=== PATIENT | female | born 1965 | race Caucasian/White ===

== ENCOUNTER 2021-10-03 06:00 | Outpatient (RCR) | payer OTHER, SELFPAY | END 2021-10-18 23:59 | disposition home or self-care (01) | LOC: APT 06:00 | PROVIDERS: Referring Provider Orthopaedic Surgery; Visit Provider Orthopaedic Surgery | DX: M75.102 Unspecified rotator cuff tear or rupture of left shoulder, not specified as traumatic (principal); M77.12 Lateral epicondylitis, left elbow | CPT/HCPCS: 97110; 97140; 97163 ==

== ENCOUNTER 2021-10-19 06:00 | Outpatient (RCR) | payer OTHER, SELFPAY | END 2021-11-18 23:59 | disposition home or self-care (01) | LOC: APT 06:00 | PROVIDERS: Referring Provider Orthopaedic Surgery; Visit Provider Orthopaedic Surgery | DX: M77.12 Lateral epicondylitis, left elbow (principal); S46.022D Laceration of muscle(s) and tendon(s) of the rotator cuff of left shoulder, subsequent encounter; X58.XXXD Exposure to other specified factors, subsequent encounter | CPT/HCPCS: 97110; 97140 ==

== ENCOUNTER 2021-11-19 06:00 | Outpatient (RCR) | payer OTHER, SELFPAY | END 2021-12-18 23:59 | disposition home or self-care (01) | LOC: APT 06:00 | PROVIDERS: Referring Provider Orthopaedic Surgery; Visit Provider Orthopaedic Surgery | DX: Z47.89 Encounter for other orthopedic aftercare (principal); Z98.890 Other specified postprocedural states; M77.12 Lateral epicondylitis, left elbow | CPT/HCPCS: 97110; 97140 ==

== ENCOUNTER 2021-12-19 06:00 | Outpatient (RCR) | payer OTHER, SELFPAY | END 2022-01-18 23:59 | disposition home or self-care (01) | LOC: APT 06:00 | PROVIDERS: Referring Provider Orthopaedic Surgery; Visit Provider Orthopaedic Surgery | DX: Z47.89 Encounter for other orthopedic aftercare (principal); Z98.890 Other specified postprocedural states; M77.12 Lateral epicondylitis, left elbow | CPT/HCPCS: 97110; 97140 ==

== ENCOUNTER 2022-01-19 06:00 | Outpatient (RCR) | payer OTHER, SELFPAY | END 2022-02-18 23:59 | disposition home or self-care (01) | LOC: APT 06:00 | PROVIDERS: Referring Provider Orthopaedic Surgery; Visit Provider Orthopaedic Surgery | DX: M77.12 Lateral epicondylitis, left elbow (principal) | CPT/HCPCS: 97164 ==

== ENCOUNTER 2024-11-23 17:35 | Emergency (ER) | payer OTHER, SELFPAY ==
[2024-11-23 17:43] VITALS: BP 162/84; PULSE 87; RESP 16; TEMP 36.6; O2SAT 98; BMI 23.8
--- NOTE | 2024-11-23 18:05 | W.ED.FALL ---
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 The ladder on the side of the concrete truck patient was holding onto, slipped with muddy boots, and thinks that she rolled. Her hat flew off. She complains of pain in bilateral wrist, and is unsure of LOC. She states she just feels sore all over. Coworker examined back that noted contusions. Associated symptoms-after fall: Reports neck pain; Denies abdominal pain, chest pain or headache(s) Related Data Previous Rx's ?Medication ?Instructions ?Recorded azithromycin 250 mg tablet See Rx Instructions PO .COMPLEX #6 10/11/24 tabs cyclobenzaprine 10 mg tablet 10 mg PO Q8H PRN muscle spasm #20 11/23/24 tabs Allergies Allergy/AdvReac Type Severity Reaction Status Date / Time No Known Allergies Allergy Verified 10/11/24 11:41 Review of Systems General: Reports: 10 or more systems reviewed and unremarkable except in HPI and below Const: Denies: fever(s) or chills ENMT: Denies: throat pain Card: Denies: chest pain or palpitations Resp: Denies: dyspnea, productive cough or wheezing GI: Denies: abdominal pain, nausea or vomiting : Denies: flank pain Musc: Reports: neck pain, back pain and joint pain Skin/Breast: Reports: erythema and skin tenderness; Denies: rash or pruritus Neuro: Denies: headache(s) Psych: Denies: anxiety or depression PFSH ED PFSH: Medical History Allergic rhinitis Social History Smoking and tobacco/nicotine status: former use of tobacco/nicotine Alcohol intake: never Substance/Drug Use: never Physical Exam Const: COMMON NORMALS: no acute distress, average body habitus, patient oriented x3 and no limitations GENERAL APPEARANCE: cooperative HENMT: COMMON NORMALS: normocephalic, atraumatic, hearing grossly normal bilaterally, external ears normal, TM's normal bilaterally and Normal external nose present HEAD & SCALP: normocephalic and atraumatic NOSE: Normal external nose present and Normal nares present GENERAL EAR: hearing not grossly impaired EXTERNAL EAR: Yes external ears normal TYMPANIC MEMBRANE: TM's normal bilaterally THROAT: posterior oropharynx normal, tonsils normal and uvula midline Eye: COMMON NORMALS: Equal, round and reactive pupils present and EOMs intact bilaterally SCLERA: sclerae normal PUPIL: Yes Equal, round and reactive pupils present Neck/C-Spine: COMMON NORMALS: full ROM and no lymphadenopathy GENERAL: Yes normal visual inspection CERVICAL SPINE: Yes cervical ROM normal OTHER: no pain on c-spine palpitation Lymph: LYMPHATIC: no lymphadenopathy noted Chest: Breast/axilla inspection: Yes no chest deformity, asymmetry, normal contours, no nodules, masses, tenderness and Yes normal inspection of the axillae Resp: COMMON NORMALS: normal respiratory effort, No retractions, No use of accessory muscles, clear to auscultation bilaterally and percussion normal EFFORT & INSPECTION: Yes able to speak in complete sentences and Yes symmetric chest movement AUSCULTATION: clear to auscultation bilaterally PERCUSSION: percussion normal Cardio: COMMON NORMALS: S1 normal heart sound present, S2 normal heart sound present and Peripheral pulses 2+ throughout HEART SOUNDS: S1 normal heart sound present and S2 normal heart sound present PERIPHERAL PULSES: Peripheral pulses 2+ throughout GI: INSPECTION: Yes normal to inspection AUSCULTATION: Yes normoactive bowel sounds : COMMON NORMALS: Yes no CVA tenderness BLADDER/KIDNEY EXAM: Yes no CVA tenderness Back/Pelvis: COMMON NORMALS: no CVA tenderness and thoraco-lumbar ROM normal THORACIC SPINE/UPPER BACK: Yes normal to inspection and Yes thoracic ROM normal LUMBAR SPINE/LOWER BACK: Yes normal to inspection and Yes lumbar ROM normal SACROILIAC JOINTS: Yes SI joints normal and Yes SI joint(s) abnormal Extremity: COMMON NORMALS: normal to inspection and full ROM GENERAL: Yes normal exam except as noted RIGHT UPPER EXTREMITY: Yes upper arm Right upper arm: No inspection and Yes palpation (anatomical snuff box and axilla thumb compression pain) Neuro: COMMON NORMALS: patient oriented x3 Course Vital Signs: Vital signs: Vital Signs Temperature 97.9 F 11/23/24 17:43 Pulse Rate 87 11/23/24 17:43 Respiratory Rate 16 11/23/24 17:43 Blood Pressure 162/84 11/23/24 17:43 Pulse Oximetry 98 11/23/24 17:43 Oxygen Delivery Me thod Room Air 11/23/24 17:43 MDM - Fall Medical Decision Making Patient is a 59-year-old female 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 She had many boots, slipped, and fell contusing her back and complains of multiple areas of musculoskeletal pain, and, on exam, had anatomical snuffbox tenderness to right wrist. Given her question of LOC, patient's complaints, will obtain CT of head and neck. She is not on anticoagulation. Employer request drug testing which is ordered, as well as urinalysis which can cause Ms. coordination. Since the areas of concern to patient are small, superficial, and appear more consistent with contusion, no reason for CT of the back that is not on the midline, however as noted per picture is superficial contusions from the ladder. Lab Data Radiology Impressions Cervical Spine CT 11/23/24 18:15 IMPRESSION: 1. No CT evidence of acute cervical spine traumatic injury. 2. Additional findings, as above. Head CT 11/23/24 18:[address]: 1[address] evidence of acute intracranial pathology. 2. Additional findings, as above. Laboratory Results Urine Color Yellow (Yellow) 11/23/24 18:40 Urine Appearance Clear (CLEAR) 11/23/24 18:40 Urine pH 5.5 (5-7) 11/23/24 18:40 Ur Specific Chalmers 1.010 (1.005-1.030) 11/23/24 18:40 Urine Protein Negative (Negative) 11/23/24 18:40 Urine Glucose (UA) Negative (Normal) 11/23/24 18:40 Urine Ketones Negative (Negative) 11/23/24 18:40 Urine Blood Negative (Negative) 11/23/24 18:40 Urine Nitrate Negative (Negative) 11/23/24 18:40 Urine Bilirubin Negative (Negative) 11/23/24 18:40 Urine Urobilinogen 1.0 mg/dL (Negative) 11/23/24 18:40 Ur Leukocyte Esterase 1+ (Negative) A 11/23/24 18:40 Urine RBC 0-2 /hpf (0-2) 11/23/24 18:40 Urine WBC 11-20 /hpf (0-5) H 11/23/24 18:40 Ur Squamous Epith Cells 11-20 /hpf (0-5) H 11/23/24 18:40 Amorphous Sediment Not Reportable 11/23/24 18:40 Urine Bacteria 1+ /hpf (NONE) H 11/23/24 18:40 Hyaline Casts 1.21 /lpf 11/23/24 18:40 Urine Opiates Screen Negative ng/mL (Negative) 11/23/24 18:40 Ur Barbiturates Screen Negative ng/mL (Negative) 11/23/24 18:40 Ur Phencyclidine Scrn Negative ng/mL (Negative) 11/23/24 18:40 Ur Amphetamines Screen Negative ng/mL (Negative) 11/23/24 18:40 U Benzodiazepines Scrn Negative ng/mL (Negative) 11/23/24 18:40 Urine Cocaine Screen Negative ng/mL (Negative) 11/23/24 18:40 U Marijuana (THC) Screen Negative ng/mL (Negative) 11/23/24 18:40 All radiology interpretation(s) finalized by discharge ED provider radiology interpretation(s): ct head/neck: neg xr wrist: neg Discharge Plan Discharge Patient Disposition: Home Clinical Impression: Fall from ladder, Acute pain of right wrist, Concussion without loss of consciousness Condition: Stable Prescriptions: New cyclobenzaprine 10 mg tablet 10 mg PO Q8H PRN (Reason: muscle spasm) Qty: 20 0RF Rx Instructions: Take 1/2-1 q8 prn muscle spasms No Action azithromycin 250 mg tablet See Rx Instructions PO .COMPLEX Qty: 6 0RF Rx Instructions: For 250 mg dose pack: take 500 mg today (day 1), then 250 mg for 4 days (days 2-5) PO Discharge Orders: Discharge ED (Routine); Ordered 11/23/24 Ordered By: Desi [place] Discharge Diet: Usual diet Discharge Activity: Resume usual activity Patient Instructions: Fall Prevention (ED) Activity Restrictions/Additional Instructions: Increase activity as tolerated Wear brace while working on heavy equipment and until this can be further x-rayed in 1 week Follow-up with orthopedic?call for appointment for follow-up. You may utilize your primary care physician for follow-up and repeat x-ray/removal of brace. Tylenol, or ibuprofen for pain. Do not take your muscle relaxers at work or while you are driving to avoid sedation. Print Language: Stateless Coding Level of Care Code ED Home Service Director for Clive Valadez
--- NOTE | 2024-11-23 18:15 | XRR_ITS ---
PROCEDURE INFORMATION: Exam: XR Right Wrist Exam date and time: 11/23/2024 7:10 PM Age: 59 years old Clinical indication: Injury or trauma; Fall; Blunt trauma (contusions or hematomas); Wrist; Right; Additional info: Fall with contusion TECHNIQUE: Imaging protocol: Radiologic exam of the right wrist. Views: 3 or more views. COMPARISON: No relevant prior studies available. FINDINGS: Bones/joints: Osteopenia. No radiographic evidence of acute fracture or dislocation. Alignment anatomic. Mild degenerative changes. Soft tissues: Grossly unremarkable. XR/XR wrist RT w scaphoid [id number] IMPRESSION: No acute radiographic findings.
--- NOTE | 2024-11-23 18:15 | CTR_ITS ---
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 Denies loc. Patient drowsy upon exam. ; Additional info: Fall, contusion with questioon of loc TECHNIQUE: Imaging protocol: Computed tomography of the head without contrast. Axial, coronal and sagittal reformatted images were created and reviewed. Radiation optimization: All CT scans at this facility use at least one of these dose optimization techniques: automated exposure control; mA and/or kV adjustment per patient size (includes targeted exams where dose is matched to clinical indication); or iterative reconstruction. COMPARISON: No relevant prior studies available. RADIATION DOSE METRICS: Total DLP (mGy-cm): 1059.28 FINDINGS: Brain: No CT evidence of acute intracranial hemorrhage or acute territorial infarction. No significant mass effect or midline shift. Basal cisterns patent. Cerebral ventricles: Normal in size and configuration. Paranasal sinuses: Unremarkable. No fluid levels. Mastoid air cells: Grossly unremarkable. Bones: Unremarkable. No acute fracture. Soft tissues: Grossly unremarkable. Vasculature: Calcific atherosclerotic disease in the cavernous internal carotid arteries. CT/CT head wo con* [id number] IMPRESSION: 1. No CT evidence of acute intracranial pathology. 2. Additional findings, as above.
--- NOTE | 2024-11-23 18:15 | CTR_ITS ---
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 Denies loc. Patient drowsy upon exam. ; Additional info: Fall with contusion TECHNIQUE: Imaging protocol: Computed tomography of the cervical spine without contrast.Axial, coronal and sagittal reformatted images were created and reviewed. Radiation optimization: All CT scans at this facility use at least one of these dose optimization techniques: automated exposure control; mA and/or kV adjustment per patient size (includes targeted exams where dose is matched to clinical indication); or iterative reconstruction. COMPARISON: CT head wo con* [id number] 11/23/2024 6:35 PM RADIATION DOSE METRICS: Total DLP (mGy-cm): 324.01 FINDINGS: Bones: Osteopenia. Straightening of the normal cervical lordosis. No CT evidence of acute fracture, dislocation or subluxation. Minimal anterolisthesis of C4 on C5 and retrolisthesis of C5 on C6. Alignment otherwise anatomic. Vertebral body heights maintained. Mild multilevel degenerative changes, characterized by disc space narrowing, osteophytosis and uncovertebral and facet joint hypertrophy. Mild multilevel neural foraminal narrowing. No significant spinal stenosis. Lungs: Lung apices are normal. Soft tissues: Grossly unremarkable. CT/CT cervical spin wo con* [id number] IMPRESSION: 1. No CT evidence of acute cervical spine traumatic injury. 2. Additional findings, as above.
[2024-11-23 18:52] LABS: Bilirubin Urine Negative (Negative); Blood Urine Negative (Negative); Glucose Urine UA Negative (Normal); Ketones Urine Negative (Negative); Leukocyte Esterase Urine 1+ (Negative); Nitrate Urine Negative (Negative); Protein Urine Negative (Negative); Urine Appearance Clear (CLEAR); Urine Color Yellow (Yellow); pH Urine 5.5 (5-7)
[2024-11-23 18:56] LABS: Add Urine Microscopic? YES; Bacteria Urine 1+ /hpf; Hyaline Casts Urine 1.21 /lpf; RBC Urine 0-2 /hpf (0-2)
[2024-11-23 18:59] LABS: Amphetamines Screen Urine Negative (Negative); Barbiturates Screen Urine Negative (Negative); Benzodiazepines Screen Urine Negative (Negative); Cocaine Screen Urine Negative (Negative); Opiate Screen Urine Negative (Negative); PCP Screen Urine Negative (Negative); THC Screen Urine Negative (Negative)
[2024-11-23 19:10] LABS: Add Urine Culture? Yes
[2024-11-23] MEDS: orphenadrine 30 mg/mL Inj 2 mL IM (20:00)
[2024-11-23 20:01] VITALS: BP 157/76; PULSE 85; RESP 18; O2SAT 100
== END 2024-11-23 20:02 | disposition home or self-care (01) ==
PROVIDERS: Emergency Provider Physician Assistant
DX: M25.531 Pain in right wrist (principal); M25.532 Pain in left wrist; S06.0X0A Concussion without loss of consciousness, initial encounter; W11.XXXA Fall on and from ladder, initial encounter; Z87.891 Personal history of nicotine dependence
CPT/HCPCS: 70450; 72125; 73110; 80306; 81001; 87086; 96372; 99284; J2360

== ENCOUNTER 2024-11-30 11:43 | Outpatient (CLI) | payer OTHER, SELFPAY | END 2024-11-30 11:44 | disposition home or self-care (01) | LOC: SPT 11:44 | PROVIDERS: Visit Provider Orthopaedic Surgery | DX: Z46.89 Encounter for fitting and adjustment of other specified devices (principal); M25.531 Pain in right wrist; S69.90XD Unspecified injury of unspecified wrist, hand and finger(s), subsequent encounter; X58.XXXD Exposure to other specified factors, subsequent encounter | CPT/HCPCS: L3908 ==

== ENCOUNTER → 2025-04-13 09:07 | Outpatient (BNVA) | payer OTHER, SELFPAY | PROVIDERS: Visit Provider Obstetrics & Gynecology | DX: Z01.419 Encounter for gynecological examination (general) (routine) without abnormal findings (principal); R30.0 Dysuria | CPT/HCPCS: 81000; 87624 ==